=== PATIENT | male | born 2000 | race Caucasian/White ===

== ENCOUNTER 2019-07-11 23:17 | Emergency (ER) | payer OTHER, SELFPAY ==
[2019-07-11 23:18] VITALS: BP 119/68; PULSE 100; RESP 18; TEMP 36.7; O2SAT 100; BMI 22.1
--- NOTE | 2019-07-11 23:53 | EKG12_ITS ---
Test Reason : PALPITATIONS Blood Pressure : / mmHG Vent. Rate : 102 BPM Atrial Rate : 102 BPM P-R Int : 156 ms QRS Dur : 098 ms QT Int : 358 ms P-R-T Axes : 079 -59 063 degrees QTc Int : 466 ms Sinus tachycardia Left anterior fascicular block Abnormal ECG Confirmed by FLORES ROBLEDO, JOANNA ([id number]), news copy editor NAYELY AIVNA ([id number]) on 07/13/2019 10:08:37 AM Referred By: BB Confirmed By:EMERY TANNER MD
--- NOTE | 2019-07-11 23:54 | ED.VIS.GEN ---
History of Present Illness Chief Complaint: Palpitations Informant: Patient Onset: Hours - 6-7 Context: Sudden Onset - upon waking up from nap Timing: Waxes and wanes Quality: racing HB Location: chest Current Severity: Moderate Maximum Severity: Moderate Worsened by: nothing Relieved by: nothing in particular Associated Symptoms: tingling distal extremities x 4, sob, lightheaded with standing Narrative: Patient states he was exercising earlier, and afterwards he was meditating and noticed that his heart felt like it was racing. He noticed that again when he woke up from a nap. It has been coming and going all evening. He has been noticing that his heart rate is gone up to 120s and at times goes down to 90s and he feels better. He had this 3 or 4 years ago and states has resolved followed up with a help desk administrator and ended up having a catheter-based closure of a PDA. That involved placing a plastic stent through the PDA that was supposed to result in it closing, he states he was the first patient the [place] help desk administrator had that it did not work and, but they followed him and eventually, soft tissue closed over it. He also was told that his aortic root was enlarged and should be monitored. He currently is a college student. He was taking ADHD medications since way before the initial episode, this is only the second time any of this has occurred. It is making him feel anxious and tingly all over. He does not do any drugs or illicit substances. He has had no syncopal episodes or near syncope but does feel lightheaded if he stands up. Prior similar symptoms: Yes - once; see below - Past Medical History (1) ADHD Status: Chronic Past Medical History - Allergies and Home Meds Allergies/Adverse Reactions: Allergies No Known Allergies Allergy (Verified 07/11/19 23:20) Primary Care Physician: NOT,DEFINED [NON-STAFF] - Surgical History: - - PDA closure Lives: Roommate Smoking Status: Never smoker Drugs: None Review of Systems General: Denies: Chills, Fever, Sweats Eyes: Denies: Visual changes - bilaterally, Diplopia ENT: Denies: Rhinorrhea, Sore throat Cardiovascular: Reports: Palpitations, Heart racing. Denies: Chest pain Respiratory: Reports: Dyspnea. Denies: Cough, Dyspnea on exertion Gastrointestinal: Denies: Abdominal pain, Nausea, Vomiting, Diarrhea, Melena, Hematochezia Genitourinary: Denies: Dysuria, Hematuria, Frequency Musculoskeletal: Denies: Back pain, Swelling, Extremity Pain Skin: Denies: Rash, Wounds Neurological: Reports: Parasthesia. Denies: Headache, Weakness Physical Exam Vital Signs/Narrative: Vital Signs Temp Pulse Resp BP Pulse Ox 07/11/19 23:18 98.0 F 100 18 119/68 100 Inital Vital Signs reviewed: Yes General: Well nourished, Well developed, No Acute Distress Head: Normocephalic, Atraumatic Eyes: Perrl, EOMI ENT: Moist mucous membranes, No rhinorrhea Neck: Supple, Nontender, No JVD Cardiovascular: Regular rate, Regular rhythm, No murmurs, Normal S1, Normal S2, Tachycardia Respiratory: No distress, CTA bilaterally, Chest nontender Abdomen: Soft, Nontender, Nondistended, Normal bowel sounds Back: Nontender, Normal Inspection Extremities: Nontender, No edema Skin: Normal color, No rash Neurological: Alert, Oriented x3, Cranial nerves II-XII grossly intact, Normal Strength, Normal Sensation Psychological: Normal Mood, - - a little anxious Diagnostic/Tx/Re-eval Laboratory Results 07/12/19 07/12/19 07/12/19 00:05 00:05 00:05 WBC 10.6 RBC 4.80 Hgb 14.8 Hct 41.2 MCV 85.8 MCH 30.8 MCHC 35.9 RDW Std Deviation 37.4 RDW Coeff of Marquis 12.0 Plt Count 246 MPV 10.0 Immature Gran % (Auto) 0.300 Neut % (Auto) 53.4 Lymph % (Auto) 35.3 [place] % (Auto) 10.2 H Eos % (Auto) 0.3 Baso % (Auto) 0.5 Absolute Neuts (auto) 5.7 Absolute Lymphs (auto) 3.76 Nucleated RBC % 0 D-Dimer Quant (PE/DVT) < 0.27 L Sodium 139 Potassium 2.8 L Chloride 105 Carbon Dioxide 23.0 Anion Gap 11 BUN 21 H Creatinine 1.25 Estim Creat Clear Calc 90.72 Est GFR (MDRD) Af Amer 95 Est GFR (MDRD) Non-Af 78 BUN/Creatinine Ratio 16.8 Glucose 95 Calcium 9.8 Troponin I 0.028 - Rhythm Strip Rhythm Strip: Sinus Tach Rate: 124 Ectopy: None - EKG Initial EKG Interpretation: No Acute Injury Pattern, Sinus Tachycardia - vs. atrial tachycardia Prior: No Prior Follow-up EKG Interpretation: Sinus Rhythm, No Acute Injury Pattern Prior: Changed - Subtly different P waves anterior-septal leads - Medical Decision Making Labs show a low potassium at 2.8, and are otherwise normal. My suspicion is that his potassium is low because he was anxious and hyperventilating, causing an acute respiratory alkalosis and thereby causing shift of serum potassium into cells, making it look low. Of course it is certainly possible that he is truly hypokalemic although there is no obvious reason why since he has had no recent illness. There is certainly a differential diagnosis of renal problems that could cause this that would be difficult to rule out any emergency department, so I did give him a dose of potassium here. This can be rechecked in the future as an outpatient. He was also given Cardizem 15 mg and on reevaluation his heart rate stayed in the 70s and his symptoms were completely resolved. I repeated EKG. I do not see a delta wave or anything else that looks dangerous, and of note the P waves do look different especially in the anterior-septal leads. Therefore my suspicion is that initially, he probably did have atrial tachycardia as opposed to anxiety causing sinus tachycardia, which certainly is in the differential as well. Given this, I will prescribe him low-dose Cardizem CD and have him follow-up with cardiology. He understands all this we discussed at length, and he will follow-up. Of note, I did not do an x-ray to screen for aortic root dilatation since he states it is already abnormal anyway, we have nothing to compare to, and he is complaining of no chest pains or symptoms of aortic dissection. ED Disposition - Plan for ED Patient: Disposition: Home or Assisted Living Diagnosis: PAT (paroxysmal atrial tachycardia), Hypokalemia Instructions: Pat (P.A.T.), Hypokalemia Prescriptions: Diltiazem CD [Cardizem CD] 120 mg PO DAILY #30 cap Transmission Status: Pending to [facility] [place] [facility]30 Referrals: [facility] [Provider Group] - As soon as possible (call for appt)
[2019-07-12] MEDS: dilTIAZem 25 MG/5 ML Vial 15 MG IV BOLUS (00:06)
--- NOTE | 2019-07-12 00:17 | ED.RN ---
NO OLD EKG
[2019-07-12 00:23] LABS: Absolute Lymphocyte Count 3.76 X10^3/uL (0.83-4.51); Absolute Neutrophil Count 5.7 X10^3/uL (2.0-7.7); Basophil# 0.05 X10^3/uL; Basophil% 0.5 % (0-1); Eosinophil# 0.03 X10^3/uL; Eosinophils% 0.3 % (0-5); Hematocrit 41.2 % (40-54); Hemoglobin 14.8 g/dL (13.0-16.5); Lymphocyte # 3.76 X10^3/ul (4.0); Lymphocyte % 35.3 % (19-41); Mean Corp Hgb Conc 35.9 g/dL (32-36); Mean Corpuscular Hgb 30.8 pg (27.0-32.0); Mean Corpuscular Volume 85.8 fL (80-94); Monocyte# 1.08 X10^3/uL; Monocyte% 10.2 % (0-10); NRBC Flagged by Analyzer 0 % (0-5); Neutrophil # 5.69 X10^3/uL (2.7-7.7); Neutrophil % 53.4 % (47-70); Platelet Count 246 K/mm3 (150-450); RBC Distribution Width SD 37.4 fl (35.1-43.9); White Blood Count 10.6 K/mm3 (4.4-11.0)
[2019-07-12 00:42] LABS: Anion Gap 11 (5-15); BUN 21 mg/dL (7-18); BUN/Creat Ratio 16.8 RATIO (10-20); Calcium,Total 9.8 mg/dL (8.5-10.1); Chloride 105 mmol/L (98-107); Creatinine, Serum 1.25 mg/dL (0.70-1.30); EST Glomerular Filtration Rate 78 mL/min (>60); Est Glom Filt Rate - Afr Amer 95 mL/min (>60); Estimated Creatinine Clearance 90.72 ml/min; Glucose 95 mg/dL (74-106); Potassium 2.8 mmol/L (3.5-5.1); Sodium Level 139 mmol/L (136-145)
[2019-07-12 01:00] LABS: D-Dimer Quantitative (DVT/PE) < 0.27 FEU/ug/m (0.27-0.49)
[2019-07-12 01:11] VITALS: BP 113/63; PULSE 76; RESP 16; O2SAT 98
--- NOTE | 2019-07-12 01:42 | EKG12_ITS ---
Test Reason : REPEAT EKG Blood Pressure : / mmHG Vent. Rate : 073 BPM Atrial Rate : 073 BPM P-R Int : 178 ms QRS Dur : 106 ms QT Int : 398 ms P-R-T Axes : 069 005 056 degrees QTc Int : 438 ms Normal sinus rhythm Normal ECG Confirmed by FLORES ROBLDEO, JOANNA ([id number]), art editor NAYELY AVINA ([id number]) on 07/13/2019 10:08:50 AM Referred By: BB Confirmed By:EMERY TANNER MD
[2019-07-12 01:50] VITALS: BP 127/74; PULSE 87; RESP 16; O2SAT 99
== END 2019-07-12 01:59 | disposition home or self-care (01) ==
PROVIDERS: Emergency Provider Emergency Medicine
DX: I47.1 Supraventricular tachycardia (principal); E87.6 Hypokalemia; R06.02 Shortness of breath; R20.2 Paresthesia of skin; F90.9 Attention-deficit hyperactivity disorder, unspecified type; Z79.899 Other long term (current) drug therapy
CPT/HCPCS: 80048; 84484; 85025; 85379; 93005; 96374; 99285; A4216

== ENCOUNTER → 2019-08-01 09:45 | Outpatient (CLI) | payer OTHER, SELFPAY ==
[2019-07-18 10:25] VITALS: BMI 22.1
--- NOTE | 2019-08-01 09:47 | ECHOD_ITS ---
Version 2 Reason For Study: s/p PDA closure Procedure This was a 2D Doppler, Color Flow transthoracic echocardiogram. Exam performed in department. Left Ventricle Normal LV size. The estimated ejection fraction is 55 %. No evidence for diastolic dysfunction. No regional wall motion abnormalities noted. Right Ventricle Normal RV size. Normal systolic function. Atria Normal left atrium. Normal right atrium. No doppler evidence for ASD. Mitral Valve There is no mitral valve stenosis. No mitral valve insufficiency. Tricuspid Valve There is no tricuspid stenosis. Trivial tricuspid valve insufficiency. Pulmonary artery systolic pressure is 20 mmHg. Aortic Valve Trisinus/trileaflet aortic valve. There is no aortic stenosis. No aortic valve insufficiency. Pulmonic Valve There is no pulmonic valvular stenosis. No pulmonic valve insufficiency. Great Vessels Normal aortic root. No evidence of PDA. Pericardium/Pleural No pericardial effusion. MMode/2D Measurements & Calculations LVIDd: 4.5 cm IVSd: 0.88 cm Ao root diam: 3.3 cm LVIDs: 3.3 cm LVPWd: 1.1 cm LA dimension: 3.0 cm RVDd: 3.6 cm FS: 27.7 % LAV(MOD-bp): 41.4 ml LA A4 area: 16.2 cm2 RA A4 area: 14.9 cm2 LAV(MOD-bp) Indexed: 22.7 ml/m2 LAV(MOD-sp2): 34.7 ml LAV(MOD-sp4): 43.5 ml Doppler Measurements & Calculations MV E max jose david: 70.1 cm/sec Lat Peak E' Jose David: 15.9 cm/sec Med Peak E' Jose David: 12.0 cm/sec MV A max jose david: 31.0 cm/sec E/E' lat: 4.4 E/E' med: 5.8 MV E/A: 2.3 MV V2 max: 67.7 cm/sec MV P1/2t max jose david: 69.0 cm/sec Ao V2 max: 84.1 cm/sec MV max P.8 mmHg MV P1/2t: 84.9 msec Ao max P.8 mmHg MV V2 mean: 36.5 cm/sec MV mean P.62 mmHg MV dec slope: 238.1 cm/sec2 MV V2 VTI: 20.9 cm MVA(P1/2t): 2.6 cm2 LV V1 max: 76.0 cm/sec PA V2 max: 94.2 cm/sec TR max jose david: 195.3 cm/sec LV V1 max P.3 mmHg TR max P.3 mmHg Interpretation Summary The estimated ejection fraction is 55 %. No evidence for diastolic dysfunction. Trivial tricuspid valve insufficiency. Pulmonary artery systolic pressure is 20 mmHg. No evidence of PDA Ordering Physician: Ebenezer Alford Referring Physician: Ebenezer Alford Performed By: Wander Torres RCS
== END ==
LOC: CVS 09:47
PROVIDERS: Referring Provider Specialist; Visit Provider Specialist
DX: R00.2 Palpitations (principal); Z87.74 Personal history of (corrected) congenital malformations of heart and circulatory system
CPT/HCPCS: 93306

== ENCOUNTER 2019-08-22 02:09 | Emergency (ER) | payer OTHER, SELFPAY ==
[2019-07-18 10:25] VITALS: BMI 22.1
[2019-08-22 02:10] VITALS: BP 130/91; PULSE 88; RESP 16; TEMP 36.8; O2SAT 100; BMI 22.5
[2019-08-22] MEDS: Naproxen 500 MG Tablet PO (02:25)
[2019-08-22 02:26] VITALS: BP 121/85; PULSE 70; RESP 14; O2SAT 99
--- NOTE | 2019-08-22 02:28 | ED.VIS.GEN ---
History of Present Illness Chief Complaint: Head Injury Narrative: Patient presenting for evaluation secondary to a head injury. Patient states that he has a history of around 9 concussions in the past, most recent being 2 years ago. Patient states that he sleeps in a loft at bed and his dorm room, and was watching television when his bed broke causing him to fall out of the loft bed striking his head on his desk. He struck his left posterior portion of his head, but denies loss of consciousness. Patient states that he is now having symptoms that seem consistent with a concussion including some haziness of thoughts, nausea, and light sensitivity. He denies any vomiting. He denies any visual changes numbness or weakness. He denies any anticoagulant use. He is otherwise healthy, up-to-date on vaccines. Review of systems otherwise negative. Past Medical History - Allergies and Home Meds Allergies/Adverse Reactions: Allergies No Known Allergies Allergy (Verified 08/22/19 02:10) Primary Care Physician: Care Physician,No Primary [Primary Care Provider] - Past Medical History: - - ADHD Surgical History: - - PDA closure Smoking Status: Never smoker Alcohol: Occasional Review of Systems All systems negative except as indicated General: Denies: Chills, Fever, Sweats Eyes: Reports: - - Photophobia ENT: Denies: Rhinorrhea, Sore throat Cardiovascular: Denies: Chest pain, Palpitations Respiratory: Denies: Dyspnea, Cough, Dyspnea on exertion Gastrointestinal: Reports: Nausea. Denies: Vomiting Genitourinary: Denies: Dysuria, Hematuria, Frequency Musculoskeletal: Denies: Back pain, Extremity Pain Skin: Denies: Rash, Wounds Neurological: Reports: Headache Physical Exam Vital Signs/Narrative: Vital Signs Temp Pulse Resp BP Pulse Ox 08/22/19 02:26 70 14 121/85 H 99 08/22/19 02:10 98.2 F 88 16 130/91 H 100 Inital Vital Signs reviewed: Yes General: Well nourished, Well developed, No Acute Distress, - - Airways patent, breath sounds equal bilateral, radial pulses 2+ and symmetric. GCS 15 out of 15. Head: Normocephalic, Atraumatic, - - Patient reports that he hit the left occipital area of his head on the desk, but there is no reproducible tenderness to palpation evidence of hematoma or depressed skull fracture. Eyes: Perrl, EOMI ENT: Moist mucous membranes, No rhinorrhea, TM's clear Neck: Supple, Nontender Cardiovascular: Regular rate, Regular rhythm, No murmurs Respiratory: No distress, CTA bilaterally, Chest nontender Abdomen: Soft, Nontender, Nondistended, Normal bowel sounds Back: Nontender, Normal Inspection Extremities: Nontender, No edema Skin: Normal color, No rash Neurological: Alert, Oriented x3, Cranial nerves II-XII grossly intact, Normal Strength, Normal Sensation Psychological: Normal affect, Normal Mood Diagnostic/Tx/Re-eval - Medical Decision Making Patient presented secondary to a head injury. He has negative per the [place] head CT rules. He was given Naprosyn for treatment of his headache. Patient does exhibit symptomatology of a concussion, and I did recommend that he perform both physical and mental rest. He was written off school for the next 24 hours. He was recommended signs and symptoms which to return, and was instructed to follow-up at the [facility] should he continue to have concussion type symptoms. ED Disposition - Plan for ED Patient: Disposition: Home or Assisted Living Diagnosis: Concussion without loss of consciousness Instructions: CONCUSSION, No Wake Up Additional Instructions: Follow-up at the [facility] as needed if you continue to have concussion type symptoms.
== END 2019-08-22 02:46 | disposition home or self-care (01) ==
PROVIDERS: Emergency Provider Emergency Medicine
DX: S06.0X0A Concussion without loss of consciousness, initial encounter (principal); R40.2412 Glasgow coma scale score 13-15, at arrival to emergency department; W06.XXXA Fall from bed, initial encounter; Y93.9 Activity, unspecified; Y92.9 Unspecified place or not applicable; Y99.9 Unspecified external cause status; F90.9 Attention-deficit hyperactivity disorder, unspecified type; Z79.899 Other long term (current) drug therapy
CPT/HCPCS: 99283